=== PATIENT | male | born 1955 | race Caucasian/White ===

== ENCOUNTER → 2017-02-14 | Outpatient (CLI) | payer OTHER ==
[~2017-02-14] MED LIST: ALLO100T PO; ATOR10TA82 PO; B-COCAP2 PO; BIOFTAB PO; LECI1CAP6 PO; LISI-461 PO; MULT-506 PO; OMEG10007 PO; OMEG5CAP PO; OXYC-57 PO; PRED10TA PO; SYN150 PO; WHEAPOW13 PO; ZINC PO
--- NOTE | 2017-02-14 15:06 | DIAGNOSTIC IMAGING REPORT ---
RIGHT LOWER EXTREMITY VENOUS DOPPLER CLINICAL HISTORY: Right lower extremity edema. COMPARISON STUDY: No previous studies for comparison. TECHNIQUE: Sonography of the deep venous system of the right lower extremity was performed. Compression and augmentation were evaluated. FINDINGS: The common femoral, superficial femoral and popliteal veins were compressible. Augmentation was normal. Flow was shown within the deep calf vessels. There was a 2.8 x 0.7 x 1.8 cm right popliteal cyst. IMPRESSION: 1. No evidence of deep venous thrombus within the right lower extremity. 2. Small right popliteal cyst. Electronically signed by: Rodrick Moody M.D. 02/14/2017 3:05 PM Dictated Date/Time: 02/14/2017 3:04 PM
--- NOTE | 2017-02-14 15:06 | DIAGNOSTIC IMAGING REPORT ---
CHEST 2 VIEWS ROUTINE CLINICAL HISTORY: Cough with sputum production COMPARISON STUDY: 07/12/2010 FINDINGS: The cardiac and mediastinal contours are normal. There is no evidence of focal pulmonary consolidation. There is no evidence of failure. No pleural effusions are visualized.[ IMPRESSION: No active disease in the chest. Electronically signed by: Fabricio Chambers M.D. 02/14/2017 3:04 PM Dictated Date/Time: 02/14/2017 3:04 PM
== END | disposition home or self-care (01) ==
LOC: C.ULTR 14:24
PROVIDERS: ATTEND Internal Medicine
DX: R05 Cough (principal); R60.9 Edema, unspecified

== ENCOUNTER 2017-03-13 06:35 | Emergency (ER) | payer OTHER ==
[~2017-03-13] VITALS: Ht 175.3 cm; Wt 98.0 kg
[~2017-03-13 06:35] MED LIST changes: -LISI-461 PO; -MULT-506 PO; -OMEG10007 PO; -OXYC-57 PO; -PRED10TA PO; -SYN150 PO
[2017-03-13 06:44] VITALS: TEMP 36.8; Ht 175.3 cm; Wt 98.0 kg
[2017-03-13] MEDS ORDERED: LISI-461 PO (06:58)
[2017-03-13] MEDS ORDERED: PRED10TA PO (06:58)
[2017-03-13] MEDS ORDERED: SYN150 PO (06:58)
[2017-03-13] MEDS ORDERED: MULT-506 PO (06:58)
[2017-03-13] MEDS ORDERED: OMEG10007 PO (06:58)
[2017-03-13] MEDS ORDERED: ONDANSETRON 8 MG/54 ML D5W IV STA (07:08)
[2017-03-13] MEDS ORDERED: SODIUM CHLORIDE 0.9% 1000ML 1,000 ML IV STA (07:08)
[2017-03-13 07:25] LABS: BASO % 0.2 %; BASO ABS # 0.03 K/uL (0-0.2); COMPLETE YES; EOS % 0.8 %; HEMATOCRIT 34.9 % (42-52); IG% 0.5 %; LYMPH % 11.3 %; LYMPH ABS # 1.44 K/uL (1.2-3.4); MEAN CELL VOLUME 93.1 fL (80-100); MEAN CORPUSCULAR HEMOGLOBIN 31.5 pg (25-34); MEAN CORPUSCULAR HGB CONC 33.8 g/dl (32-36); MEAN PLATELET VOLUME 9.1 fL (7.4-10.4); MONO % 11.4 %; NEUT % 75.8 %; PLATELET COUNT 463 K/uL (130-400); RED BLOOD COUNT 3.75 M/uL (4.7-6.1); WHITE BLOOD COUNT 12.79 K/uL (4.8-10.8)
--- NOTE | 2017-03-13 07:25 | DIAGNOSTIC IMAGING REPORT ---
CHEST ONE VIEW PORTABLE CLINICAL HISTORY: EVALUATE ALTERED MENTAL STATUS/WEAKNESS dyspnea COMPARISON STUDY: 02/14/2017 FINDINGS: Subsegmental atelectasis left base. Lungs otherwise are clear. Diaphragms are smooth. IMPRESSION: Subsegmental atelectasis left base. Otherwise negative study Electronically signed by: Aquilino Rae M.D. 03/13/2017 7:24 AM Dictated Date/Time: 03/13/2017 7:24 AM
[2017-03-13] MEDS: MoRPHine SULFATE 4 MG/ML 1 ML CARP\\VIAL IV PRN ×2 (07:31→08:41)
[2017-03-13 07:33] LABS: PARTIAL THROMBOPLASTIN RATIO 0.9; PROTHROMBIN TIME (PATIENT) 10.5 SECONDS (9.0-12.0)
[2017-03-13 07:37] LABS: ALT/SGPT 31 U/L (12-78); AST/SGOT 11 U/L (15-37); BLOOD UREA NITROGEN 23 mg/dl (7-18); CALCIUM 8.6 mg/dl (8.5-10.1); CARBON DIOXIDE 28 mmol/L (21-32); CHLORIDE 102 mmol/L (98-107); CREATININE 0.94 mg/dl (0.60-1.40); GLUCOSE 135 mg/dl (70-99); POTASSIUM 4.1 mmol/L (3.5-5.1); SODIUM 138 mmol/L (136-145)
[2017-03-13 07:46] LABS: ALKALINE PHOSPHATASE 42 U/L (45-117); CKMB/CK RATIO 2.2 (0-3.0)
[2017-03-13 10:23] LABS: URINE APPEARANCE CLEAR (CLEAR); URINE BILIRUBIN NEG (NEG); URINE COLOR YELLOW; URINE NITRITE NEG (NEG); URINE PH 5.5 (4.5-7.5); UROBILINOGEN NEG (NEG); ZZUR CULT IF INDIC CLEAN CATCH NO
--- NOTE | 2017-03-13 10:30 | EMERGENCY ROOM VISIT NOTE ---
History Report prepared by Nicole: Travis Houston Under the Supervision of: Dr. Jhoan Fernandez D.O. First contact with patient: 07:04 Chief Complaint: OTHER COMPLAINT Stated Complaint: GENERALIZED PAIN History of Present Illness The patient is a 61 year old male who presents to the Emergency Room with complaints of joint pain starting a few months ago and worsening today. He also reports generalized muscle aches. He has been unable to ambulate as normal due to severe weakness and pain. The patient had some fluid drained a few days ago which was tested and had an abnormal finding. The patient and his family are unsure of the specifics of the finding. He was placed on Prednisone 20 mg after the lab work came back 4 days ago. He denies any antibiotics. He took double the prescribed dose of Prednisone this morning. A minutes prior to arrival, the patient started having dizziness, lightheadedness, and worsened weakness. He denies any fevers, chills, chest pain, shortness of breath, urinary symptoms, or any other complaints. He has a history of thyroid cancer and tongue cancer. Source of History: patient Onset: a few months ago Position: other (joints) Timing: worsening Modifying Factors (Relieving): other (Prednisone 20 mg) Associated Symptoms: + weakness, No SOB, No chest pain, No chills, No fevers , No urinary symptoms Review of Systems See HPI for pertinent positives & negatives. A total of 10 systems reviewed and were otherwise negative. Past Medical & Surgical Medical Problems: (1) Gout (2) Thyroid cancer (3) Tongue cancer Family History Patient reports no known family medical history. Social History Smoking Status: Never Smoker Marital Status: single Housing Status: lives with family Occupation Status: employed Current/Historical Medications Scheduled Fish Oil ([place]-3), 1 CAP PO DAILY Levothyroxine Sodium (Synthroid), 150 MCG PO DAILY Lisinopril (Lisinopril), 10 MG PO DAILY Multivitamin (Multivitamin), 1 TAB PO DAILY Prednisone Tab (Prednisone), 10 MG PO DAILY Allergies Coded Allergies: No Known Allergies (Unverified , 11/03/14) Physical Exam Vital Signs Date Time Temp Pulse Resp B/P Pulse Ox O2 Delivery O2 Flow Rate FiO2 03/13/17 09:30 76 15 145/85 03/13/17 08:29 78 21 145/81 95 Room Air 03/13/17 07:50 76 20 113/66 92 Room Air 03/13/17 07:41 74 03/13/17 06:44 36.8 76 18 118/63 98 Room Air Physical Exam CONSTITUTIONAL/VITAL SIGNS: Reviewed / noted above. GENERAL: Non-toxic in appearance. Some discomfort with attempts to sit up. INTEGUMENTARY: Warm, dry, and [place]. HEAD: Normocephalic. EYES: without scleral icterus or trauma. ENT/OROPHARYNX: clear and moist. LYMPHADENOPATHY/NECK: Is supple without lymphadenopathy or meningismus. RESPIRATORY: Lungs clear and equal. CARDIOVASCULAR: Regular rate and rhythm. GI/ABDOMEN: Soft and nontender. No organomegaly or pulsatile mass. No rebound or guarding. Normal bowel sounds. EXTREMITIES: Warm and well perfused. BACK: No CVA tenderness. NEUROLOGICAL: Intact without focal deficits. PSYCHIATRIC: normal affect. MUSCULOSKELETAL: Normally developed with good muscle tone. Medical Decision & Procedures ER Provider Diagnostic Interpretation: X ray results and stated below per my interpretation and radiology interpretation. CHEST ONE VIEW PORTABLE CLINICAL HISTORY: EVALUATE ALTERED MENTAL STATUS/WEAKNESS dyspnea COMPARISON STUDY: 02/14/2017 FINDINGS: Subsegmental atelectasis left base. Lungs otherwise are clear. Diaphragms are smooth. IMPRESSION: Subsegmental atelectasis left base. Otherwise negative study Electronically signed by: Aquilino Rae M.D. 03/13/2017 7:24 AM Dictated Date/Time: 03/13/2017 7:24 AM Laboratory Results 03/13/17 06:45 Red Blood Count 3.75, Mean Corpuscular Volume 93.1, Mean Corpuscular Hemoglobin 31.5, Mean Corpuscular Hemoglobin Concent 33.8, Mean Platelet Volume 9.1, Neutrophils (%) (Auto) 75.8, Lymphocytes (%) (Auto) 11.3, Monocytes (%) (Auto) 11.4, Eosinophils (%) (Auto) 0.8, Basophils (%) (Auto) 0.2, Neutrophils # (Auto ) 9.70, Lymphocytes # (Auto) 1.44, Monocytes # (Auto) 1.46, Eosinophils # (Auto ) 0.10, Basophils # (Auto) 0.03 03/13/17 06:45 Test 03/13/17 06:45 03/13/17 10:00 White Blood Count 12.79 K/uL (4.8-10.8) Red Blood Count 3.75 M/uL (4.7-6.1) Hemoglobin 11.8 g/dL (14.0-18.0) Hematocrit 34.9 % (42-52) Mean Corpuscular Volume 93.1 fL (80-100) Mean Corpuscular Hemoglobin 31.5 pg (25-34) Mean Corpuscular Hemoglobin Concent 33.8 g/dl (32-36) Platelet Count 463 K/uL (130-400) Mean Platelet Volume 9.1 fL (7.4-10.4) Neutrophils (%) (Auto) 75.8 % Lymphocytes (%) (Auto) 11.3 % Monocytes (%) (Auto) 11.4 % Eosinophils (%) (Auto) 0.8 % Basophils (%) (Auto) 0.2 % Neutrophils # (Auto) 9.70 K/uL (1.4-6.5) Lymphocytes # (Auto) 1.44 K/uL (1.2-3.4) Monocytes # (Auto) 1.46 K/uL (0.11-0.59) Eosinophils # (Auto) 0.10 K/uL (0-0.5) Basophils # (Auto) 0.03 K/uL (0-0.2) RDW Standard Deviation 47.7 fL (36.4-46.3) RDW Coefficient of Variation 13.9 % (11.5-14.5) Immature Granulocyte % (Auto) 0.5 % Immature Granulocyte # (Auto) 0.06 K/uL (0.00-0.02) Prothrombin Time 10.5 SECONDS (9.0-12.0) Prothromb Time International Ratio 1.0 (0.9-1.1) Activated Partial Thromboplast Time 23.8 SECONDS (21.0-31.0) Partial Thromboplastin Ratio 0.9 Anion Gap 8.0 mmol/L (3-11) Est Creatinine Clear Calc Drug Dose 94.1 ml/min Estimated GFR () 100.3 Estimated GFR (Non- 86.5 BUN/Creatinine Ratio 24.0 (10-20) Calcium Level 8.6 mg/dl (8.5-10.1) Magnesium Level 2.0 mg/dl (1.8-2.4) Total Bilirubin 0.2 mg/dl (0.2-1) Direct Bilirubin < 0.1 mg/dl (0-0.2) Aspartate Amino Transf (AST/SGOT) 11 U/L (15-37) Alanine Aminotransferase (ALT/SGPT) 31 U/L (12-78) Alkaline Phosphatase 42 U/L (45-117) Total Creatine Kinase 100 U/L (39-308) Creatine Kinase MB 2.2 ng/ml (0.5-3.6) Creatine Kinase MB Ratio 2.2 (0-3.0) Troponin I < 0.015 ng/ml (0-0.045) Total Protein 7.0 gm/dl (6.4-8.2) Albumin 3.0 gm/dl (3.4-5.0) Lipase 195 U/L (73-393) Thyroid Stimulating Hormone (TSH) 4.510 uIu/ml (0.300-4.500) Laboratory results as stated above per my review. Medications Administered Medications (Trade) Dose Ordered Sig/Asif Route Start Time Stop Time Status Last Admin Dose Admin Sodium Chloride (Nss 1000ml) 1,000 ml @ 999 mls/hr Q1H1M STAT IV 03/13/17 07:08 03/13/17 08:08 DC 03/13/17 07:31 999 MLS/HR Morphine Sulfate (MoRPHine SULFATE INJ) 4 mg Q1H PRN IV 03/13/17 07:15 03/27/17 07:14 03/13/17 08:41 4 MG Ondansetron HCl (Zofran 8mg Iv) 8 mg NOW STAT IV 03/13/17 07:08 03/13/17 07:09 DC 03/13/17 07:31 8 MG ECG Indication: weakness, other (joint pain) Rate (beats per minute): 75 Rhythm: normal sinus Findings: no acute ischemic change, no ectopy ED Course 0704: Previous medical records were reviewed. The patient was evaluated in room A03. A complete history and physical examination was performed. 0708: Ondansetron HCl 8 mg IV, Sodium Chloride 1000 ml @ 999 mls/hr IV 0715: Morphine Sulfate 4 mg IV 1028: On reevaluation, the patient is resting comfortably. I discussed the results and findings with the patient. He verbalized agreement of the treatment plan. The patient was discharged home. Medical Decision Differential includes acute coronary syndrome, myocardial infarction, CVA, TIA, anemia, infection, pneumonia, UTI, pyelonephritis, poor nutrition, dehydration, electrolyte disturbance,hypoglycemia. This is a 61-year-old male who presents to the ED with a chief complaint of pain all over. The patient states that his pain is primarily in the shoulders and joints. He states that he has pain when he attempts to get up. He most recently but has been on prednisone for the past 5 days or so. His reports that he has a history of chronic joint pain for months. He had an aspiration of his knee joint recently and so swollen he was placed on the prednisone. The patient's exam was relatively unremarkable. There is no obvious joint effusion. He does seem to have some discomfort with attempts to sit up. The patient states that he is only been taking Tylenol or Motrin for his pain. Chest x-ray did not show any acute disease. White blood cell count was 12.7. He is on prednisone. EKG shows a normal sinus rhythm. BUN is 23. Troponin is negative. TSH was slightly elevated. Lipase normal. The patient was told the results the test. He is felt to be stable for discharge. The patient does have a rheumatology appointment later this month. The patient was treated with IV morphine, IV Zofran and IV fluids. He was given a prescription for Percocet. [place] Drug Monitoring Program Search Results: patient reviewed within database, no issues identified Impression Primary Impression: Musculoskeletal pain Scribe Attestation The scribe's documentation has been prepared under my direction and personally reviewed by me in its entirety. I confirm that the note above accurately reflects all work, treatment, procedures, and medical decision making performed by me. Departure Information Dispostion Home / Self-Care Prescriptions Oxycodone/Acetaminophen 5MG/325MG (PERCOCET 5MG/325MG) Tab 1 TAB PO Q6H Y for Pain, #20 TAB Prov: Jhoan Fernandez D.O. 03/13/17 Referrals Miller Soto MD (PCP) Patient Instructions My [facility] [employer] Additional Instructions Percocet as prescribed. No driving within 6 hours of use. Do not take additional Tylenol while taking Percocet. Follow-up with your doctor for further care and evaluation in 1-2 days. Return to the emergency department for worsening or new symptoms or any concerns. You have been examined and treated today on an emergency basis only. This is not a substitute for, or an effort to provide, complete comprehensive medical care. It is impossible to recognize and treat all injuries or illnesses in a single emergency department visit. It is therefore important that you follow up closely with your doctor. Call as soon as possible for an appointment.
[2017-03-13] MEDS ORDERED: KETOROLAC TROMETHAMINE 30 MG/ML VIAL IV STA (10:33)
[2017-03-13 10:39] LABS: MANUAL MICROSCOPIC REQUIRED? NO; REVIEW REQ? NO
[2017-03-13] MEDS ORDERED: OXYC-57 PO (10:39)
[2017-03-13 11:51] VITALS: BP 111/83; PULSE 70
[2017-03-13 12:18] VITALS: O2SAT 95
== END 2017-03-13 12:21 | disposition home or self-care (01) ==
LOC: EDBD 06:35 → C.EDA 06:37
DX: M79.1 Myalgia (principal); Z85.850 Personal history of malignant neoplasm of thyroid; Z85.810 Personal history of malignant neoplasm of tongue; M10.9 Gout, unspecified; Z79.899 Other long term (current) drug therapy

== ENCOUNTER 2017-11-08 13:57 | Emergency (ER) | payer OTHER ==
[~2017-11-08] VITALS: Ht 175.3 cm; Wt 97.6 kg
[~2017-11-08 13:57] MED LIST changes: -ALLO100T PO; -ATOR10TA82 PO; -B-COCAP2 PO; -BIOFTAB PO; -LECI1CAP6 PO; +LISI-461 PO; +MULT-506 PO; +OMEG10007 PO; -OMEG5CAP PO; +PRED10TA PO; +SYN150 PO; -WHEAPOW13 PO; -ZINC PO
[2017-11-08 14:05] VITALS: Ht 175.3 cm; Wt 97.6 kg
[2017-11-08] MEDS ORDERED: AMPICILLIN/SULBACTAM SOD INJ 3,000 MG in SODIUM CHLORIDE 0.9% 100ML 100 ML IV ONE (14:30)
--- NOTE | 2017-11-08 15:01 | DIAGNOSTIC IMAGING REPORT ---
L HAND MIN 3 VIEWS ROUTINE CLINICAL HISTORY: 62 years-old Male presenting with LEFT, DOG BITE. TECHNIQUE: Frontal, oblique, and lateral views of the left hand were obtained. COMPARISON: None. FINDINGS: Soft tissue emphysema noted along the ulnar dorsal aspect of the hand, where there is diffuse soft tissue swelling. No subjacent osseous injury. Degenerative changes with osteophytosis at the interphalangeal joint of the first finger. Suggestion of an osteochondroma along the head of the proximal phalanx of the fifth finger. IMPRESSION: 1. No acute osseous injury of the hand. 2. Subcutaneous emphysema and soft tissue swelling related to the laceration over the ulnar dorsum of the hand. Electronically signed by: Iggy Morales M.D. 11/08/2017 3:00 PM Dictated Date/Time: 11/08/2017 2:58 PM
[2017-11-08] MEDS ORDERED: MTH25 PO (15:09)
[2017-11-08] MEDS ORDERED: NYSTCRE11 (15:09)
[2017-11-08] MEDS ORDERED: FOLI1TAB8 PO (15:09)
[2017-11-08] MEDS ORDERED: KETOROLAC TROMETHAMINE 30 MG/ML VIAL IV STA (15:15)
[2017-11-08] MEDS ORDERED: AMOX875T PO (15:18)
[2017-11-08] MEDS ORDERED: OXYC-57 PO (15:19)
--- NOTE | 2017-11-08 15:20 | EMERGENCY ROOM VISIT NOTE ---
"ED Visit Note First contact with patient: 14:10 CHIEF COMPLAINT: Dog bite left hand last evening HISTORY OF PRESENT ILLNESS: Patient is a [id number] 62-year-old white male who presents to the emergency department from his primary care doctor's office for evaluation of dog bite injury that occurred to his left hand last evening. He states that his 2 dogs were fighting and he reached in to try to break up the fight, he was bitten on the left hand he is unsure of which dog bit him. Both of the dogs are up-to-date with her rabies vaccinations. Patient reports that he cleansed the area with warm soapy water, applied antibiotic ointment and a bandage and iced his hand last evening. He notes that it was beginning to swell last night, but the swelling is worse when he woke up this morning. He did not take any medications for discomfort which he presently rates an 8/10. The patient denies fever, chills, nausea, or loss of appetite. Movement of the fingers and hand is decreased because of the pain and swelling. He was seen at his primary care provider's office where they updated his tetanus, then sent him to the emergency department for IV antibiotics. REVIEW OF SYSTEMS: Review of systems as per HPI. All other systems reviewed were negative. 10 systems reviewed. PMH: Electronic medical records are reviewed and summarized as above/below. See Problem List. SOCIAL HISTORY: Patient living at home. Retired. Nonsmoker. PHYSICAL EXAM: Vital Signs: Reviewed Nurse's notes. CONSTITUTIONAL: Patient is a pleasant, well-appearing 62-year-old white male who is awake and alert and in no acute distress. INTEGUMENTARY: Examination of the left hand show multiple puncture wounds, consistent with the dog bite. He has multiple over the entire dorsum of the left hand, no further proximal than the extensor crease of the wrist, and has one on the dorsal aspect of the left fourth finger over the DIP crease. He has one puncture wound on the palmar aspect of the hand over the thenar eminence. He has dorsal soft tissue swelling and erythema, and the entire hand is generally tender to palpation. He can extend his fingers fully, flexion is limited by pain and soft tissue swelling. Hand is neurovascularly intact. He does have 2 very faint areas of lymphangitic streaking up the palmar aspect of the hand, stopping in the mid forearm. It does not extend into the antecubital space. EMERGENCY DEPARTMENT COURSE: The patient was seen and evaluated as above. Old records are reviewed. X-rays of the left hand were obtained and were unremarkable. He was given Unasyn 3 g IV and Toradol 30 mg IV for discomfort. Wounds were cleansed and dressed. Wound care measures were discussed with the patient. At this point, given that the wounds are secondary to a dog bite, and the time that has elapsed since the injury, it would be ill advised to do any delayed primary closure, and he was advised that the wounds would heal on their own by secondary intention. He was encouraged to wash them daily with soap and water and cover with ointment and a bandage until healed. He was educated on the worrisome signs or symptoms of worsening infection for which she should return to the emergency department, otherwise will return for a wound recheck in 48 hours. [facility] Animal Bite form was completed. Patient was reviewed in the [facility] Prescription Drug Monitoring Program, and there were no red flags noted. Medication reconciliation: I attest that I have personally reviewed the patient' s current medication list. Blood pressure screening: Patient was found to have a slightly elevated blood pressure due to circumstances. I do not believe that the patient requires hypertension monitoring. L HAND MIN 3 VIEWS ROUTINE CLINICAL HISTORY: 62 years-old Male presenting with LEFT, DOG BITE. TECHNIQUE: Frontal, oblique, and lateral views of the left hand were obtained. COMPARISON: None. FINDINGS: Soft tissue emphysema noted along the ulnar dorsal aspect of the hand, where there is diffuse soft tissue swelling. No subjacent osseous injury. Degenerative changes with osteophytosis at the interphalangeal joint of the first finger. Suggestion of an osteochondroma along the head of the proximal phalanx of the fifth finger. IMPRESSION: 1. No acute osseous injury of the hand. 2. Subcutaneous emphysema and soft tissue swelling related to the laceration over the ulnar dorsum of the hand. Problem List Medical Problems: (1) Gout Status: Chronic (2) Hypertension Nos Status: Chronic (3) Hypothyroidism Status: Chronic (4) Musculoskeletal pain Status: Resolved (5) Rheumatoid arthritis Status: Chronic (6) Thyroid cancer Status: Resolved (7) Tongue cancer Status: Resolved Surgical Problems: (1) History of thyroidectomy Status: Resolved Current/Historical Medications Scheduled Amoxicillin & Pot Clavulanate (Augmentin 875-125 mg), 1 TAB PO BID Fish Oil ([place]-3), 1 CAP PO DAILY Folic Acid (Folvite), 1 TAB PO DAILY Levothyroxine Sodium (Synthroid), 150 MCG PO DAILY Lisinopril (Lisinopril), 10 MG PO DAILY Multivitamin (Multivitamin), 1 TAB PO DAILY Prednisone Tab (Prednisone), 10 MG PO DAILY Scheduled PRN Oxycodone/Acetaminophen 5MG/325MG (Percocet 5MG/325MG), 1-2 TABS PO Q4 PRN for Pain Miscellaneous Medications Methotrexate (Trexall ), 5 MG PO Nystatin/Triamcinolone (Mycogen || ) Allergies Coded Allergies: No Known Allergies (Unverified , 11/03/14) Vital Signs Date Time Temp Pulse Resp B/P (MAP) Pulse Ox O2 Delivery O2 Flow Rate FiO2 11/08/17 16:04 36.8 72 16 138/77 97 11/08/17 16:03 72 16 138/77 97 Room Air 11/08/17 14:05 36.8 74 16 150/75 97 Room Air Medications Administered Medications (Trade) Dose Ordered Sig/Asif Route Start Time Stop Time Status Last Admin Dose Admin Ampicillin Sodium/ Sulbactam Sodium 3000 mg/Sodium Chloride 108 ml @ 200 mls/hr ONE ONCE IV 11/08/17 14:30 11/08/17 15:02 DC 11/08/17 14:56 200 MLS/HR Ketorolac Tromethamine (Toradol Inj) 30 mg NOW STAT IV 11/08/17 15:15 11/08/17 15:16 DC 11/08/17 15:32 30 MG Departure Information Impression Primary Impression: Dog bite Prescriptions Oxycodone/Acetaminophen 5MG/325MG (PERCOCET 5MG/325MG) Tab 1-2 TABS PO Q4 Y for Pain, #20 TAB For Initial Treatment Prov: Kim Nathan PA 11/08/17 Amoxicillin & Pot Clavulanate (Augmentin 875-125 mg) 1 Tab Tab 1 TAB PO BID, #20 TAB Prov: Kim Nathan PA 11/08/17 Referrals Miller Soto MD (PCP) [facility] Instructions [facility] Additional Instructions Percocet 5/325 mg: Take 1-2 pills every four hours for breakthrough pain. Avoid alcohol, operating machinery or dangerous equipment, working on ladders or roofs, DRIVING, or situations where being under the influence may be dangerous. It is recommended to use an vxrt-ngo-kwbyurt stool softener such as Colace, 100mg twice daily while taking this medication to avoid constipation. Ibuprofen(Motrin, Advil) may be used for fever or pain. Use 600mg every six hours as needed. Take with food. Avoid using more than 2400mg in a 24 hour period. Do not use 2400mg per day for more than three consecutive days without physician direction. Prolonged inappropriate use can lead to stomach upset or ulcers. This medication can be taken if you need to drive, work, or perform activities which may be dangerous when taking narcotic pain medication. (AND/OR) Acetaminophen(Tylenol) may be used for fever or pain. Use 1000mg every six hours as needed. Avoid using more than 3000mg in a 24 hour period. This medication can be taken if you need to drive, work, or perform activities which may be dangerous when taking narcotic pain medication. Augmentin 875 mg : Take one pill 2 times daily for 10 days for your skin infection. All antibiotics can cause diarrhea. If this occurs and you feel worse or it does not resolve in 1-2 days follow up with your doctor or return to the Emergency Department as this could be signs of serious underlying problems. Any medication can cause an allergic reaction, stop the pills immediately and return to the ER for rash, hives, breathing difficulties, or swelling. Ice compresses for 20 minutes at a time four times daily for 2-3 days. Ice and elevate your hand for pain and swelling. Rest and avoid any heavy lifting or strenuous activity until your symptoms improved. Continue current medications. Return to the ER immediately for any fevers, numbness, tingling, severe pain, extreme swelling in the extremity or as needed. Follow up with your primary care provider or at the emergency department in 48 hours for a wound recheck."
[2017-11-08 16:04] VITALS: BP 138/77; PULSE 72; TEMP 36.8; O2SAT 97
--- NOTE | 2017-11-08 16:14 | EMERGENCY ROOM VISIT NOTE ---
ED Visit Note First contact with patient: 14:10 The patient was seen and examined with Samaria Nathan PA-C. I agree with the history, physical and findings. Please see the note for disposition and details.
== END 2017-11-08 16:05 | disposition home or self-care (01) ==
LOC: C.EDB 13:58 → C.EDA 16:05
DX: S61.452A Open bite of left hand, initial encounter (principal); I10 Essential (primary) hypertension; E03.9 Hypothyroidism, unspecified; M06.9 Rheumatoid arthritis, unspecified; Z79.899 Other long term (current) drug therapy; Z85.810 Personal history of malignant neoplasm of tongue; Z85.850 Personal history of malignant neoplasm of thyroid; W54.0XXA Bitten by dog, initial encounter

== ENCOUNTER 2017-11-10 11:29 | Emergency (ER) | payer OTHER ==
[~2017-11-10] VITALS: Ht 177.8 cm; Wt 97.0 kg
[~2017-11-10 11:29] MED LIST changes: +AMOX875T PO; +FOLI1TAB8 PO; +MTH25 PO; +NYSTCRE11; +OXYC-57 PO
[2017-11-10 11:30] VITALS: BP 145/84; TEMP 36.5; O2SAT 97; Ht 177.8 cm; Wt 97.0 kg
[2017-11-10] MEDS ORDERED: AMPICILLIN/SULBACTAM SOD INJ 3,000 MG in SODIUM CHLORIDE 0.9% 100ML 100 ML IV ONE (12:00)
[2017-11-10] MEDS ORDERED: NYSS/ PO (12:19)
[2017-11-10 12:30] LABS: BASO % 0.2 %; BASO ABS # 0.02 K/uL (0-0.2); EOS % 1.2 %; HEMATOCRIT 41.7 % (42-52); HEMOGLOBIN 14.4 g/dL (14.0-18.0); IG# 0.02 K/uL (0.00-0.02); LYMPH % 12.1 %; LYMPH ABS # 1.04 K/uL (1.2-3.4); MEAN CELL VOLUME 98.1 fL (80-100); MEAN CORPUSCULAR HEMOGLOBIN 33.9 pg (25-34); MEAN CORPUSCULAR HGB CONC 34.5 g/dl (32-36); MEAN PLATELET VOLUME 9.9 fL (7.4-10.4); MONO % 11.3 %; MONO ABS # 0.97 K/uL (0.11-0.59); NEUT ABS # 6.46 K/uL (1.4-6.5); PLATELET COUNT 221 K/uL (130-400); RED CELL DISTRIBUTION WIDTH SD 53.5 fL (36.4-46.3); WHITE BLOOD COUNT 8.61 K/uL (4.8-10.8)
--- NOTE | 2017-11-10 13:00 | EMERGENCY ROOM VISIT NOTE ---
ED Visit Note First contact with patient: 11:34 CHIEF COMPLAINT: Recheck dog bite, left hand HPI: Patient is a 62-year-old white male who returns to the emergency department as advised for recheck of a dog bite to the left hand that he sustained the evening of the . He was seen by myself here in the emergency department on the . He received IV Unasyn, and has been on Augmentin. He has had a total of 4 doses of Augmentin. He notes that the area has improved slightly. The swelling has gone down, and he reports less pain. He does note some slight pus like drainage from one of the wounds on the dorsum of his left hand. The streaking on the palmar aspect of his forearm that have been present previously has resolved. He denies any fever or chills, does admit to some fatigue. He rates his discomfort a 5/10. REVIEW OF SYSTEMS: Review of systems as per HPI. All other systems reviewed were negative. At least 6 systems reviewed. PMH: Electronic medical records are reviewed and summarized as above/below. See Problem List. SOCIAL HISTORY: Patient lives at home. He is retired. PHYSICAL EXAM: Vital Signs: Reviewed Nurse's notes. MENTAL STATUS: Pleasant, well-appearing 62-year-old white male who is awake and alert and in no acute distress. SKIN: Examination of the left hand show well- healing, scabbed over puncture wounds on the dorsum of the hand. There is very slight purulent drainage noted from the wound near the crease of the wrist. Palmar wound is well healing, and nontender. The patient has erythema and swelling in the dorsum of the hand that extends roughly 1/3 up the forearm. It is not overtly hot or cellulitic, and is slightly tender to touch. Patient can flex and extend his wrist fully, can extend his fingers fully, flexion of his fingers is limited by soft tissue swelling. Left upper extremity is neurovascularly intact. There is no lymphangitic streaking. EMERGENCY DEPARTMENT COURSE: The patient was seen and evaluated as above. Compared to 2 days ago, streaking up the volar aspect of the hand has resolved but erythema has extended up the dorsum of the wrist slightly. He does not demonstrate any physical exam findings that are consistent with infectious tenosynovitis, no evidence for drainable abscess. He was given an additional Unasyn 3 g IV. CBC was checked and he has a normal white count. He does have a history of rheumatoid arthritis and is on prednisone chronically and methotrexate weekly. I have asked the patient to return to the emergency department in an additional 24 hours for wound recheck, at this point depending on how he is responding, he will either need admitted for IV antibiotics or home on continued orals. He is comfortable with this. Patient was reviewed with attending physician who also independently evaluated the patient and was in agreement. Medication reconciliation: I attest that I have personally reviewed the patient' s current medication list. Blood pressure screening: Patient was found to have a slightly elevated blood pressure due to circumstances. I do not believe that the patient requires hypertension monitoring. Problem List Medical Problems: (1) Gout Status: Chronic (2) Hypertension Nos Status: Chronic (3) Hypothyroidism Status: Chronic (4) Musculoskeletal pain Status: Resolved (5) Rheumatoid arthritis Status: Chronic (6) Thyroid cancer Status: Resolved (7) Tongue cancer Status: Resolved Surgical Problems: (1) History of thyroidectomy Status: Resolved Current/Historical Medications Scheduled Amoxicillin & Pot Clavulanate (Augmentin 875-125 mg), 1 TAB PO BID Fish Oil ([place]-3), 1 CAP PO DAILY Folic Acid (Folvite), 1 TAB PO DAILY Levothyroxine Sodium (Synthroid), 150 MCG PO DAILY Lisinopril (Lisinopril), 10 MG PO DAILY Methotrexate (Trexall ), 20 MG PO WK Multivitamin (Multivitamin), 1 TAB PO DAILY Nystatin (Nystatin Suspension), 1 DOSE PO DIRECTED Prednisone Tab (Prednisone), 10 MG PO DAILY Scheduled PRN Oxycodone/Acetaminophen 5MG/325MG (Percocet 5MG/325MG), 1-2 TABS PO Q4 PRN for Pain Allergies Coded Allergies: No Known Allergies (Unverified , 11/10/17) Vital Signs Date Time Temp Pulse Resp B/P (MAP) Pulse Ox O2 Delivery O2 Flow Rate FiO2 11/10/17 13:25 78 18 11/10/17 11:30 36.5 87 16 145/84 97 Room Air Laboratory Results 11/10/17 12:10 Red Blood Count 4.25, Mean Corpuscular Volume 98.1, Mean Corpuscular Hemoglobin 33.9, Mean Corpuscular Hemoglobin Concent 34.5, Mean Platelet Volume 9.9, Neutrophils (%) (Auto) 75.0, Lymphocytes (%) (Auto) 12.1, Monocytes (%) (Auto) 11.3, Eosinophils (%) (Auto) 1.2, Basophils (%) (Auto) 0.2, Neutrophils # (Auto ) 6.46, Lymphocytes # (Auto) 1.04, Monocytes # (Auto) 0.97, Eosinophils # (Auto ) 0.10, Basophils # (Auto) 0.02 Test 11/10/17 12:10 White Blood Count 8.61 K/uL (4.8-10.8) Red Blood Count 4.25 M/uL (4.7-6.1) Hemoglobin 14.4 g/dL (14.0-18.0) Hematocrit 41.7 % (42-52) Mean Corpuscular Volume 98.1 fL (80-100) Mean Corpuscular Hemoglobin 33.9 pg (25-34) Mean Corpuscular Hemoglobin Concent 34.5 g/dl (32-36) Platelet Count 221 K/uL (130-400) Mean Platelet Volume 9.9 fL (7.4-10.4) Neutrophils (%) (Auto) 75.0 % Lymphocytes (%) (Auto) 12.1 % Monocytes (%) (Auto) 11.3 % Eosinophils (%) (Auto) 1.2 % Basophils (%) (Auto) 0.2 % Neutrophils # (Auto) 6.46 K/uL (1.4-6.5) Lymphocytes # (Auto) 1.04 K/uL (1.2-3.4) Monocytes # (Auto) 0.97 K/uL (0.11-0.59) Eosinophils # (Auto) 0.10 K/uL (0-0.5) Basophils # (Auto) 0.02 K/uL (0-0.2) RDW Standard Deviation 53.5 fL (36.4-46.3) RDW Coefficient of Variation 15.0 % (11.5-14.5) Immature Granulocyte % (Auto) 0.2 % Immature Granulocyte # (Auto) 0.02 K/uL (0.00-0.02) Medications Administered Medications (Trade) Dose Ordered Sig/Asif Route Start Time Stop Time Status Last Admin Dose Admin Ampicillin Sodium/ Sulbactam Sodium 3000 mg/Sodium Chloride 108 ml @ 200 mls/hr ONE ONCE IV 11/10/17 12:00 11/10/17 12:32 DC 11/10/17 12:48 200 MLS/HR Departure Information Impression Primary Impression: Cellulitis Additional Impression: Dog bite Referrals Miller Soto MD (PCP) Patient Instructions My [facility] [address] Additional Instructions Continue Augmentin as prescribed. Ibuprofen(Motrin, Advil) may be used for fever or pain. Use 600mg every six hours as needed. Take with food. Avoid using more than 2400mg in a 24 hour period. Do not use 2400mg per day for more than three consecutive days without physician direction. Prolonged inappropriate use can lead to stomach upset or ulcers. (AND/OR) Acetaminophen(Tylenol) may be used for fever or pain. Use 1000mg every six hours as needed. Avoid using more than 3000mg in a 24 hour period. Warm compresses to the affected area 4 times daily for 15-20 minutes. Clean wound daily as instructed. Rest and drink plenty of fluids. Continue current medications. Return to the ER tomorrow 11/11 for wound recheck (Samaria Nathan PA-C starts at 1pm tomorrow, but you are welcome to return at any time.). Problem Qualifiers
--- NOTE | 2017-11-10 13:01 | EMERGENCY ROOM VISIT NOTE ---
ED Visit Note First contact with patient: 11:34 Patient was seen by our PA/KEY ACCOUNT COORDINATOR. I was involved in the patient's care and did evaluate the patient myself. I was involved in the care throughout the ER stay. The patient has a dog bite and a cellulitis from the bite. He is on Augmentin. He has received some IV Unasyn. He has minimal pain, no fever. He will be discharged and return tomorrow for a recheck. If not improving by tomorrow, he may require a hospital stay for IV antibiotic therapy.
[2017-11-10 13:25] VITALS: PULSE 78
[2017-11-11] MEDS ORDERED: CLOT10TR2 MT (13:52)
== END 2017-11-10 13:25 | disposition home or self-care (01) ==
LOC: C.EDB 11:29
DX: L03.90 Cellulitis, unspecified (principal); W54.0XXA Bitten by dog, initial encounter; M06.9 Rheumatoid arthritis, unspecified; M10.9 Gout, unspecified; I10 Essential (primary) hypertension; Z85.850 Personal history of malignant neoplasm of thyroid; Z85.810 Personal history of malignant neoplasm of tongue; E89.0 Postprocedural hypothyroidism; Z79.899 Other long term (current) drug therapy

== ENCOUNTER 2017-11-11 12:57 | Emergency (ER) | payer OTHER ==
[~2017-11-11] VITALS: Ht 177.8 cm; Wt 98.1 kg
[~2017-11-11 12:57] MED LIST changes: +NYSS/ PO
[2017-11-11 13:10] VITALS: TEMP 36.7; Ht 177.8 cm; Wt 98.1 kg
[2017-11-11] MEDS ORDERED: CLOT10TR2 MT (13:52)
--- NOTE | 2017-11-11 13:53 | EMERGENCY ROOM VISIT NOTE ---
ED Visit Note First contact with patient: 13:14 CHIEF COMPLAINT: Recheck dog bite, left hand HPI: Patient is a 62-year-old white male who returns to the emergency department as advised for recheck of a dog bite to the left hand that he sustained the evening of the . He was seen by myself here in the emergency department on the and the . He received IV Unasyn, and has been on Augmentin. He notes that his symptoms have markedly improved since the IV antibiotics yesterday. Redness is nearly completely resolved, and swelling has significantly gone down on the dorsum of his hand. He is able to move his fingers more normally. He has minimal pain. There is still some slight pus like drainage from one of the wounds on the dorsum of his left hand. He denies any fever or chills. Patient does note that he began treatment for thrush with nystatin on 11/08 as prescribed by his primary care provider. He has a history of oropharyngeal cancer and underwent radiation therapy and has had recurrent thrush since. He notes that his symptoms are not improving on the nystatin. He notes mouth and throat pain and difficulty swallowing. REVIEW OF SYSTEMS: Review of systems as per HPI. All other systems reviewed were negative. At least 6 systems reviewed. PMH: Electronic medical records are reviewed and summarized as above/below. See Problem List. SOCIAL HISTORY: Patient lives at home. He is retired. PHYSICAL EXAM: Vital Signs: Reviewed Nurse's notes. MENTAL STATUS: Pleasant, well-appearing 62-year-old white male who is awake and alert and in no acute distress. SKIN: Examination of the left hand show well-healing, scabbed over puncture wounds on the dorsum of the hand. There is very slight purulent drainage noted from the wound near the crease of the wrist. Palmar wound is well healing, and nontender. The patient has erythema and swelling in the dorsum of the hand that extends roughly 1/3 up the forearm. It is not overtly hot or cellulitic, and is slightly tender to touch. Patient can flex and extend his wrist fully, can extend his fingers fully, flexion of his fingers is limited by soft tissue swelling. Left upper extremity is neurovascularly intact. There is no lymphangitic streaking. ENT: Examination of the posterior pharynx show a multiple scattered white, plaque-like lesions on an erythematous base, particularly on the soft palate. EMERGENCY DEPARTMENT COURSE: The patient was seen and evaluated as above. Compared to yesterday his symptoms have almost completely resolved. At this point it was not felt that any further IV antibiotics were indicated. He will finish the Augmentin as prescribed. The patient does note worsening thrush symptoms since Monday, with a history of the same. This also may be complicated by the fact that he is on Augmentin. Have discussed switching to clotrimazole troches to see if this well help with his symptoms. The patient was encouraged to recheck with his primary care provider this week or further care and evaluation. Return to emergency department if needed. Medication reconciliation: I attest that I have personally reviewed the patient' s current medication list. Blood pressure screening: Patient was found to have a slightly elevated blood pressure due to circumstances. I do not believe that the patient requires hypertension monitoring. Problem List Medical Problems: (1) Gout Status: Chronic (2) Hypertension Nos Status: Chronic (3) Hypothyroidism Status: Chronic (4) Musculoskeletal pain Status: Resolved (5) Rheumatoid arthritis Status: Chronic (6) Thyroid cancer Status: Resolved (7) Tongue cancer Status: Resolved Surgical Problems: (1) History of thyroidectomy Status: Resolved Current/Historical Medications Scheduled Amoxicillin & Pot Clavulanate (Augmentin 875-125 mg), 1 TAB PO BID Clotrimazole (Mycelex), 10 MG MT 5XD Fish Oil ([place]-3), 1 CAP PO DAILY Folic Acid (Folvite), 1 TAB PO DAILY Levothyroxine Sodium (Synthroid), 150 MCG PO DAILY Lisinopril (Lisinopril), 10 MG PO DAILY Methotrexate (Trexall ), 20 MG PO WK Multivitamin (Multivitamin), 1 TAB PO DAILY Nystatin (Nystatin Suspension), 1 DOSE PO DIRECTED Prednisone Tab (Prednisone), 10 MG PO DAILY Scheduled PRN Oxycodone/Acetaminophen 5MG/325MG (Percocet 5MG/325MG), 1-2 TABS PO Q4 PRN for Pain Allergies Coded Allergies: No Known Allergies (Unverified , 11/11/17) Vital Signs Date Time Temp Pulse Resp B/P (MAP) Pulse Ox O2 Delivery O2 Flow Rate FiO2 11/11/17 14:03 74 17 131/73 99 11/11/17 13:10 36.7 77 18 108/65 96 Room Air Departure Information Impression Primary Impression: Encounter for wound re-check Additional Impression: Thrush Prescriptions Clotrimazole (Mycelex) 10 Mg Tro 10 MG MT 5XD, #50 CARLEE Prov: Kim Nathan PA 11/11/17 Referrals Miller Soto MD (PCP) Patient Instructions My [facility] Additional Instructions Finish Augmentin as prescribed. Continue local wound care as discussed. May resume normal activity as your symptoms allow. Stop Nystatin and use Clotrimazole lozenges, one 5 times daily. Follow up with your PCP next week for recheck. Return to the ED as needed. Problem Qualifiers
[2017-11-11 14:03] VITALS: BP 131/73; PULSE 74; O2SAT 99
--- NOTE | 2017-11-11 14:08 | EMERGENCY ROOM VISIT NOTE ---
ED Visit Note First contact with patient: 13:14 Patient was seen by our PA/RESIDENCE COUNSELOR. I was involved in the patient's care and did evaluate the patient myself. I was involved in the care throughout the ER stay. The patient's arm looks markedly improved. He is being discharged to continue his antibiotics. We will also attempt to treat his oral thrush.
== END 2017-11-11 14:07 | disposition home or self-care (01) ==
LOC: C.EDB 12:58 → C.EDC 14:07
DX: S60.572D Other superficial bite of hand of left hand, subsequent encounter (principal); W54.0XXD Bitten by dog, subsequent encounter; B37.9 Candidiasis, unspecified; I10 Essential (primary) hypertension; E03.9 Hypothyroidism, unspecified; M19.90 Unspecified osteoarthritis, unspecified site